=== PATIENT | female | born 1960 | race African-American/Black ===

== ENCOUNTER 2018-02-14 08:22 | Emergency (ER) | payer OTHER ==
[~2018-02-14] VITALS: Ht 165.1 cm; Wt 90.0 kg
[2018-02-14] MEDS ORDERED: SODIUM CHLORIDE 0.9% 1,000 ML IV ONE (08:48)
[2018-02-14 10:33] LABS: BASOPHILS % 1.2 % (0.0-2.0); EOSINOPHILS % 1.8 % (0.0-5.0); HEMATOCRIT. 39.7 % (36.0-48.0); HEMOGLOBIN. 12.8 g/dL (12.0-16.0); LYMPHOCYTES % 35.7 % (20.0-50.0); MEAN CORPUSCULAR HEMOGLOBIN 25.7 pg (28.0-32.0); MEAN CORPUSCULAR VOLUME 79.4 fL (81.0-99.0); MONOCYTES % 6.3 % (2.0-8.0); RED BLOOD CELL COUNT 4.99 mill/uL (4.2-5.4); RED CELL DISTRIBUTION WIDTH 15.8 % (11.6-14.6)
[2018-02-14 10:43] LABS: CHLORIDE 107 mEq/L (98-107)
[2018-02-14 10:44] LABS: PARTIAL THROMBOPLASTIN TIME 24.5 sec (23.4-31.0); PROTHROMBIN TIME 10.3 sec (9.4-11.6)
[2018-02-14] MEDS ORDERED: DIPHENHYDRAMINE 50MG/ML VIAL IV ONE (11:15)
[2018-02-14] MEDS ORDERED: FENTANYL CITRATE/PF 50MCG/ML 2ML VIAL IV ONE (11:15)
[2018-02-14] MEDS ORDERED: ONDANSETRON HCL 4MG/2ML VIAL IV ONE (11:15)
[2018-02-14] MEDS ORDERED: DEXTROSE 50% WATER 50ML SYRINGE IV ONE (11:45)
[2018-02-14 11:51] LABS: CREATINE KINASE MB FRACTION 1.1 ng/mL (0.5-3.6)
[2018-02-14] MEDS ORDERED: IOHEXOL-350 100 ML BOTTLE ONE (13:14)
[2018-02-14 13:50] VITALS: BP 136/84
== END 2018-02-14 14:02 | disposition short-term general hospital (02) ==
LOC: ER 08:33
DX: S16.1XXA Strain of muscle, fascia and tendon at neck level, initial encounter (principal); S29.012A Strain of muscle and tendon of back wall of thorax, initial encounter; V89.2XXA Person injured in unspecified motor-vehicle accident, traffic, initial encounter; E11.9 Type 2 diabetes mellitus without complications; I10 Essential (primary) hypertension; E78.00 Pure hypercholesterolemia, unspecified; E16.2 Hypoglycemia, unspecified; Y92.89 Other specified places as the place of occurrence of the external cause; Y93.89 Activity, other specified; Y99.8 Other external cause status
CPT/HCPCS: 36415; 70450; 71045; 71275; 72125; 80048; 82550; 82553; 82962; 83880; 84484; 85025; 85610; 85730; 93005; 96361; 96374; 96375; 99291; J1200; J2405; J3010; J7030; Q9967; Z7610

== ENCOUNTER 2025-04-28 14:18 | Inpatient (IN) | payer OTHER ==
[~2025-04-28] VITALS: Ht 165.1 cm; Wt 93.1 kg
[2025-04-28] MEDS: ASPIRIN 325MG EC TABLET PO ONE (15:04)
[2025-04-28] MEDS: NITROGLYCERIN 0.4MG TABLET SL SL ONE (15:04)
[2025-04-28 15:21] LABS: BASOPHILS % 0.2 % (0.0-2.0); EOSINOPHILS % 0.7 % (0.0-5.0); HEMATOCRIT. 39.1 % (36.0-48.0); HEMOGLOBIN. 12.7 g/dL (12.0-16.0); LYMPHOCYTES % 43.1 % (20.0-50.0); MEAN CORPUSCULAR HEMOGLOBIN 26.5 pg (28.0-32.0); MEAN CORPUSCULAR HGB CONC 32.5 g/dL (31.0-37.0); MEAN CORPUSCULAR VOLUME 81.5 fL (81.0-99.0); MEAN PLATELET VOLUME 10.3 fl (7.4-10.4); MONOCYTES % 7.7 % (2.0-8.0); NEUTROPHILS % 48.3 % (40.0-76.0); PLATELET 228 x1000/uL (130-400); RED BLOOD CELL COUNT 4.79 mill/uL (4.2-5.4); RED CELL DISTRIBUTION WIDTH 14.4 % (11.6-14.6)
[2025-04-28] MEDS: SODIUM CHLORIDE 0.9% 500 ML IV ONE (15:23)
[2025-04-28 15:31] LABS: PROTHROMBIN TIME 10.3 sec (9.6-11.0)
[2025-04-28 15:42] LABS: CHLORIDE 102 mEq/L (98-107); POTASSIUM 3.5 mEq/L (3.5-5.1); SODIUM 137 mEq/L (136-145)
[2025-04-28 15:43] LABS: CALCIUM 9.7 mg/dL (8.7-10.4); CARBON DIOXIDE 25 mEq/L (21-32)
[2025-04-28 15:48] LABS: CREATININE 0.6 mg/dL (0.6-1.0); GLUCOSE 132 mg/dL (70-105); TROPONIN I HIGH SENSITIVITY 18 ng/L (3.0-34); UREA NITROGEN BLOOD 9 mg/dL (9-23)
[2025-04-28 15:50] LABS: ALANINE AMINOTRANSFERASE 39 IU/L (10-49); ALBUMIN 4.4 g/dL (3.2-4.8); ASPARTATE AMINOTRANSFERASE 36 IU/L (<34); BILIRUBIN DIRECT 0.2 mg/dL (<=3.0); BILIRUBIN TOTAL 0.5 mg/dL (0.1-1.0); PROTEIN TOTAL 7.3 g/dL (6.0-8.3)
[2025-04-28] MEDS: KETOROLAC 15MG/ML VIAL IV NR (17:47)
[2025-04-28 18:01] LABS: TROPONIN I HIGH SENSITIVITY 17 ng/L (3.0-34)
[2025-04-28 18:34] LABS: CLARITY URINE CLEAR (CLEAR); COLOR URINE YELLOW (YELLOW); GLUCOSE URINE NEGATIVE (NEGATIVE); KETONES URINE 2+ (NEGATIVE); LEUKOCYTE ESTERASE URINE NEGATIVE (NEGATIVE); NITRITE URINE NEGATIVE (NEGATIVE); OCCULT BLOOD URINE NEGATIVE (NEGATIVE); PROTEIN URINE NEGATIVE (NEGATIVE); SPECIFIC GRAVITY URINE 1.015 (1.005-1.030); UROBILINOGEN URINE 0.2 E.U./dL (0.2-1.0)
[2025-04-28 20:30] VITALS: BP 141/55; PULSE 106; RESP 20; TEMP 36.5; O2SAT 100
[2025-04-28] MEDS ORDERED: DOCUSATE SODIUM 100MG CAPSULE PO PRN (21:15)
[2025-04-28] MEDS ORDERED: DEXTROSE 50% WATER 50ML SYRINGE IV PRN (21:15)
[2025-04-28] MEDS ORDERED: CLONIDINE 0.1MG TABLET PO PRN (21:15)
[2025-04-28] MEDS ORDERED: ACETAMINOPHEN 325MG TABLET PO PRN (21:15)
[2025-04-28] MEDS: ONDANSETRON HCL 4MG/2ML INJ IV NR (21:15)
[2025-04-28 21:30] VITALS: BP 141/55; PULSE 106; RESP 20; TEMP 36.5
[2025-04-28] MEDS ORDERED: IPRATROPIUM/ALBUTEROL 0.5-3(2.5)MG/3ML NEB HHN PRN (21:38)
[2025-04-28] MEDS: LISINOPRIL 20MG TABLET PO SCH (22:16)
[2025-04-28] MEDS: PANTOPRAZOLE SODIUM 40 MG/VIAL IV SCH (22:16)
[2025-04-28] MEDS: ACETAMINOPHEN 325MG TABLET PO PRN (22:28)
[2025-04-28] MEDS ORDERED: OMEP20CA14 PO (23:00)
[2025-04-28] MEDS ORDERED: CICL6.1H IH (23:00)
[2025-04-28] MEDS ORDERED: OZEMPIC (23:00)
[2025-04-28] MEDS ORDERED: PANT20TA17 PO (23:00)
[2025-04-28] MEDS ORDERED: BENZ100C86 PO (23:00)
[2025-04-28] MEDS ORDERED: ALBUTEROL (23:00)
[2025-04-28] MEDS ORDERED: METF-414 PO (23:00)
[2025-04-28] MEDS ORDERED: METH2.5T PO (23:00)
[2025-04-28] MEDS ORDERED: LISI10TA26 PO (23:00)
[2025-04-28 23:52] LABS: CREATINE KINASE MB FRACTION 1.2 ng/mL (0.5-3.6)
[2025-04-29] VITALS: BP 141/55; PULSE 106; RESP 20; TEMP 36.5; O2SAT 100
[2025-04-29] MEDS: METOPROLOL TARTRATE 25MG TABLET PO NR (01:46)
[2025-04-29] MEDS: SODIUM CHLORIDE 0.9% 1,000 ML IV ONE (01:46)
[2025-04-29] MEDS ORDERED: ONDANSETRON HCL 4MG/2ML INJ IV PRN (02:00)
[2025-04-29 04:00] VITALS: BP 125/58; PULSE 94; RESP 20; TEMP 36.8; O2SAT 98
[2025-04-29 05:34] LABS: BASOPHILS % 1.1 % (0.0-2.0); EOSINOPHILS % 1.2 % (0.0-5.0); HEMATOCRIT. 34.1 % (36.0-48.0); HEMOGLOBIN. 11.3 g/dL (12.0-16.0); LYMPHOCYTES % 50.2 % (20.0-50.0); MEAN CORPUSCULAR HEMOGLOBIN 26.7 pg (28.0-32.0); MEAN CORPUSCULAR VOLUME 80.8 fL (81.0-99.0); MEAN PLATELET VOLUME 10.1 fl (7.4-10.4); MONOCYTES % 11.8 % (2.0-8.0); NEUTROPHILS % 35.7 % (40.0-76.0); PLATELET 209 x1000/uL (130-400); RED BLOOD CELL COUNT 4.22 mill/uL (4.2-5.4); RED CELL DISTRIBUTION WIDTH 14.2 % (11.6-14.6); WHITE BLOOD COUNT 4.8 x1000/uL (4.5-11.0)
[2025-04-29 06:07] LABS: CARBON DIOXIDE 26 mEq/L (21-32); CHLORIDE 105 mEq/L (98-107); CREATINE KINASE MB FRACTION 1.1 ng/mL (0.5-3.6); POTASSIUM 3.6 mEq/L (3.5-5.1); SODIUM 139 mEq/L (136-145)
[2025-04-29 06:13] LABS: CREATININE 0.6 mg/dL (0.6-1.0); GLUCOSE 158 mg/dL (70-105); T4 FREE 2.43 ng/dL (0.89-1.76); TRIGLYCERIDE 77 mg/dL (0-150); UREA NITROGEN BLOOD 11 mg/dL (9-23)
[2025-04-29 06:14] LABS: LDL CHOLESTEROL 83 mg/dL (5-100); THYROID STIMULATING HORMONE < 0.10 uIU/mL (0.55-4.78)
[2025-04-29 06:15] LABS: CHOLESTEROL 131 mg/dL (<200); HDL CHOLESTEROL 40 mg/dL (>65)
[2025-04-29] MEDS: PANTOPRAZOLE SODIUM 40 MG/VIAL IV SCH (06:15)
[2025-04-29] MEDS: FAMOTIDINE 20MG/2ML VIAL IV NR (06:38)
[2025-04-29] MEDS: BLOOD SUGAR DIAGNOSTIC STRIP TEST SCH (07:05)
[2025-04-29] MEDS: SUCRALFATE 1G TABLET PO SCH (07:40)
[2025-04-29 08:00] VITALS: BP 144/66; PULSE 95; RESP 20; TEMP 36.1; O2SAT 100
[2025-04-29] MEDS: INSULIN LISPRO 100 UNITS/ML SUBCUT SCH (08:10)
[2025-04-29] MEDS ORDERED: ENOXAPARIN 30MG/0.3ML SYR SUBCUT SCH (09:00)
[2025-04-29 09:05] LABS: *AMPHETAMINES SCREEN URINE NEGATIVE (NEGATIVE); *BARBITURATES SCREEN URINE NEGATIVE (NEGATIVE); *BENZODIAZEPINES SCREEN URINE NEGATIVE (NEGATIVE); *COCAINE SCREEN URINE NEGATIVE (NEGATIVE); CANNABINOID URINE SCREEN NEGATIVE (NEGATIVE); METHADONE URINE SCREEN NEGATIVE (NEGATIVE); OPIATES URINE SCREEN NEGATIVE (NEGATIVE); PHENCYCLIDINE URINE SCREEN NEGATIVE (NEGATIVE)
[2025-04-29 09:06] LABS: ECSTASY MDMA SCREEN URINE NEGATIVE (NEGATIVE)
[2025-04-29 12:00] VITALS: BP 145/60; PULSE 90; RESP 20; TEMP 36.1; O2SAT 100
[2025-04-29 12:00] LABS: HEMATOCRIT 38.3 % (36.0-48.0); HEMOGLOBIN 12.1 g/dL (12.0-16.0)
[2025-04-29] MEDS: METHIMAZOLE 5MG TABLET PO SCH (13:28)
[2025-04-29] MEDS: AZITHROMYCIN 250 MG TABLET PO SCH (13:28)
[2025-04-29 16:00] VITALS: BP 155/66; PULSE 90; RESP 20; TEMP 36.6; O2SAT 98
[2025-04-29] MEDS ORDERED: FOLI0.4T6 MT (18:35)
[2025-04-29 20:00] VITALS: BP 141/62; PULSE 99; RESP 18; TEMP 36.2; O2SAT 99
[2025-04-30] VITALS: BP 154/68; PULSE 93; RESP 18; TEMP 36.3; O2SAT 98
[2025-04-30 04:00] VITALS: BP 138/66; PULSE 97; RESP 20; TEMP 36.6; O2SAT 99
[2025-04-30] MEDS ORDERED: PANTOPRAZOLE 40MG DR TABLET PO SCH (06:00)
[2025-04-30 07:09] LABS: BASOPHILS % 1.3 % (0.0-2.0); EOSINOPHILS % 1.4 % (0.0-5.0); HEMATOCRIT. 35.9 % (36.0-48.0); HEMOGLOBIN. 11.7 g/dL (12.0-16.0); LYMPHOCYTES % 50.8 % (20.0-50.0); MEAN CORPUSCULAR HEMOGLOBIN 26.3 pg (28.0-32.0); MEAN CORPUSCULAR HGB CONC 32.6 g/dL (31.0-37.0); MEAN CORPUSCULAR VOLUME 80.7 fL (81.0-99.0); MEAN PLATELET VOLUME 9.9 fl (7.4-10.4); MONOCYTES % 14.7 % (2.0-8.0); NEUTROPHILS % 31.8 % (40.0-76.0); PLATELET 200 x1000/uL (130-400); RED BLOOD CELL COUNT 4.45 mill/uL (4.2-5.4); RED CELL DISTRIBUTION WIDTH 14.1 % (11.6-14.6); WHITE BLOOD COUNT 3.9 x1000/uL (4.5-11.0)
[2025-04-30 07:48] LABS: CHLORIDE 106 mEq/L (98-107); POTASSIUM 3.9 mEq/L (3.5-5.1); SODIUM 141 mEq/L (136-145)
[2025-04-30 07:50] LABS: CALCIUM 9.1 mg/dL (8.7-10.4)
[2025-04-30 07:54] LABS: CREATININE 0.6 mg/dL (0.6-1.0); GLUCOSE 214 mg/dL (70-105); UREA NITROGEN BLOOD 11 mg/dL (9-23)
[2025-04-30 08:00] VITALS: BP 148/42; PULSE 104; RESP 20; TEMP 36.7; O2SAT 100
[2025-04-30 08:15] LABS: CARBON DIOXIDE 26 mEq/L (21-32)
[2025-04-30] MEDS: AMLODIPINE 5MG TABLET PO SCH (09:00)
[2025-04-30 10:14] LABS: T4 FREE 2.76 ng/dL (0.89-1.76); THYROID STIMULATING HORMONE < 0.10 uIU/mL (0.55-4.78)
[2025-04-30] MEDS ORDERED: DIPHENHYDRAMINE 50MG/ML VIAL IM PRN (10:15)
[2025-04-30] MEDS: PANTOPRAZOLE 40MG DR TABLET PO SCH (10:35)
[2025-04-30] MEDS: DIPHENHYDRAMINE 50MG/ML VIAL IV SCH (10:35)
[2025-04-30 11:13] LABS: IRON 44 ug/dL (50-170)
[2025-04-30 11:15] LABS: TOTAL IRON BINDING CAPACITY 298 ug/dl (250-425)
[2025-04-30 12:00] VITALS: BP 150/73; PULSE 104; RESP 20; TEMP 36.7; O2SAT 100
[2025-04-30] MEDS ORDERED: AMLO5TAB88 MT (12:28)
[2025-04-30] MEDS ORDERED: LISI20TA31 MT (12:28)
[2025-04-30] MEDS ORDERED: METH-371 MT (13:33)
[2025-04-30] MEDS ORDERED: FERR325T6 MT (13:42)
[2025-04-30 14:23] VITALS: BP 150/74; PULSE 99; TEMP 98.9; O2SAT 98
== END 2025-04-30 15:46 | disposition home or self-care (01) | DRG 384 ==
LOC: ER 14:18 → EDBEDREQ 19:39 → ENRESERV 19:58 → 7WST 20:06
PROVIDERS: ADMIT Hospitalist; ATTEND Hospitalist
DX: K25.9 Gastric ulcer, unspecified as acute or chronic, without hemorrhage or perforation (principal); K29.70 Gastritis, unspecified, without bleeding; K20.90 Esophagitis, unspecified without bleeding; E05.90 Thyrotoxicosis, unspecified without thyrotoxic crisis or storm; I10 Essential (primary) hypertension; E11.9 Type 2 diabetes mellitus without complications; D50.9 Iron deficiency anemia, unspecified; E78.00 Pure hypercholesterolemia, unspecified; Z79.82 Long term (current) use of aspirin; Z79.84 Long term (current) use of oral hypoglycemic drugs; Z88.5 Allergy status to narcotic agent; Z88.8 Allergy status to other drugs, medicaments and biological substances
CPT/HCPCS: 36415; 71045; 80048; 80061; 80076; 80305; 81003; 82550; 82553; 82962; 83036; 83520; 83540; 83550; 83605; 83735; 83880; 84100; 84145; 84439; 84443; 84481; 84484; 85014; 85018; 85025; 85044; 93005; 93970; 99291; A4606; J1200; J1308; J1815; J1885; J2405; J2470